=== PATIENT | male | born 2000 ===

== ENCOUNTER 2023-11-12 10:25 | Outpatient (AMB) | payer MEDICARE, MEDICAID, SELFPAY ==
--- NOTE | 2023-11-12 10:29 | AM.OFFWIN_ITS ---
Intake Vital Signs 11/12/23 10:30 Height 5 ft 6 in Weight 130 lb 8 oz BMI 21.1 BP 120/68 Blood Pressure Location Rt brachial Position Sitting Pulse 91 Pulse Source Pulse Oximeter Pulse Oximetry (%) 97 Oxygen Delivery Method Room Air Intake Visit Reasons: Mouth pain Intake Note: Patient is here today for mouth pain for 4 or 5 days now Patient Tobacco Use Status: Never used Tobacco Maintenance And Utilities Supervisor Required: No Fire Protection Engineer: Present Accompanied by: Mother Allergies No Known Allergies Allergy (Verified 11/12/23 11:14) Do you need a note to return to daycare/school/sports/work: No HPI HPI Comments History of Present Illness Details 23 y/o male, accompanied with her mom aleja lemus with complaints of a tooth ache for the past 5 days. No associated symptoms. He has been taking Ibuprofen and using orajel without improvement. He has not seen a dentist for the past 5 years but has an appointment on 11/16/2022. PFSH Social History Patient Tobacco Use Status: Never used Tobacco Review of Systems Const Details: Const Denies chills, Denies fatigue, Denies fever(s), Denies headache(s) and Denies weakness ENT Reports as per HPI Resp Denies cough, Denies dyspnea, Denies wheezing and Denies other (shortness of breath) Cardio Denies chest pain, Denies lightheadedness, Denies dyspnea and Denies other (palpitations) Neuro Denies dizziness, Denies headache(s), Denies numbness, Denies tingling and Denies weakness Psych Denies anxiety, Denies depression, Denies memory?loss Endo Denies fatigue Aller/Immun Denies wheezing Physical Exam Vital Signs: Last Vital Signs Pulse 91 11/12/23 10:30 BP 120/68 11/12/23 10:30 Pulse Ox 97 11/12/23 10:30 Oxygen Delivery Method Room Air 11/12/23 10:30 BMI result Body Mass Index 21.1 Const Other: Const General: well developed; No acute distress Nutritional Appearance: well nourished Orientation/consciousness: patient oriented x3 HEENT Head: Yes normocephalic and Yes atraumatic #32 molar with decay, no bubble, erythema or edema Eyes General: appearance normal, both eyes and all related structures Pupils: Equal, round and reactive pupils present EOM: EOMs intact bilaterally Resp Effort & Inspection: normal respiratory effort Auscultation: clear to auscultation bilaterally Cardio Rate: regular rate Rhythm: regular rhythm Heart sounds: S1 normal heart sound present, S2 normal heart sound present, no gallops, no murmurs and no rubs Bruits: no abdominal aortic bruits and no carotid bruits Neuro General: patient oriented x3 and gait normal, no focal neuro deficit Cranial nerves: Yes Equal, round and reactive pupils present Psych Affect: normal affect Assessment & Plan Assessment & Plan (1) Tooth ache: Code(s): K08.89 - Other specified disorders of teeth and supporting structures Plan: Tooth ache x 5 days #32 molar with decay, no bubble, erythema or edema Naproxen and amoxicillin as prescribed May rinse mouth with salt water as needed Follow-up with dentist as planned Return with worsening or new symptoms Verbalized understanding and agreed with treatment plan Medications: New naproxen 500 mg PO BID PRN 28 tabs 0RF pain 14 days amoxicillin 500 mg PO Q12H 14 tabs 0RF 7 days Coding Level of Care Code New Pt Level 3 (67079) Diagnoses Tooth ache K08.89
[2023-11-12 10:30] VITALS: BP 120/68; PULSE 91; O2SAT 97; BMI 21.1
== END 2023-11-12 11:21 | disposition home or self-care (01) ==
PROVIDERS: Visit Provider Nurse Practitioner Family
DX: K08.89 Other specified disorders of teeth and supporting structures (principal)
CPT/HCPCS: 99203